=== PATIENT | female | born 1990 | race Caucasian/White ===

== ENCOUNTER 2024-10-22 16:43 | Emergency (ER) | payer OTHER ==
[~2024-10-22] VITALS: Ht 160 cm; Wt 73.0 kg
[2024-10-22 16:46] VITALS: O2SAT 99
[2024-10-22 16:56] VITALS: BP 121/80; PULSE 88; RESP 14; TEMP 36.8; O2SAT 96
[2024-10-22 17:54] LABS: BASOPHILS % 0.9 % (0.0-2.0); DIFFERENTIAL COMMENT 0; HEMATOCRIT. 26.4 % (36.0-48.0); HEMOGLOBIN. 8.2 g/dL (12.0-16.0); LYMPHOCYTES % 21.8 % (20.0-50.0); MEAN CORPUSCULAR HEMOGLOBIN 22.4 pg (28.0-32.0); MEAN CORPUSCULAR HGB CONC 31.3 g/dL (31.0-37.0); MEAN CORPUSCULAR VOLUME 71.5 fL (81.0-99.0); MEAN PLATELET VOLUME 8.5 fl (7.4-10.4); MONOCYTES % 8.7 % (2.0-8.0); NEUTROPHILS % 65.6 % (40.0-76.0); PLATELET 276 x1000/uL (130-400); RED BLOOD CELL COUNT 3.68 mill/uL (4.2-5.4); RED CELL DISTRIBUTION WIDTH 19.1 % (11.6-14.6)
[2024-10-22 18:32] LABS: HCG SCREEN NEGATIVE
[2024-10-22 18:36] LABS: CLARITY URINE CLEAR (CLEAR); COLOR URINE YELLOW (YELLOW); GLUCOSE URINE NEGATIVE (NEGATIVE); KETONES URINE NEGATIVE (NEGATIVE); LEUKOCYTE ESTERASE URINE 3+ (NEGATIVE); NITRITE URINE NEGATIVE (NEGATIVE); OCCULT BLOOD URINE NEGATIVE (NEGATIVE); PROTEIN URINE NEGATIVE (NEGATIVE); SPECIFIC GRAVITY URINE 1.008 (1.005-1.030); UROBILINOGEN URINE 0.2 E.U./dL (0.2-1.0)
[2024-10-22 19:25] LABS: BACTERIA URINE 2+; RBC URINE NONE SEEN /hpf (0-2); SQUAMOUS EPITHELIAL CELL URINE FEW /lpf (RARE/1+)
[2024-10-22] MEDS ORDERED: NITR-87 MT (20:24)
== END 2024-10-22 20:51 | disposition home or self-care (01) ==
LOC: ER 16:43
DX: N39.0 Urinary tract infection, site not specified (principal); N83.209 Unspecified ovarian cyst, unspecified side; J45.909 Unspecified asthma, uncomplicated; Z98.890 Other specified postprocedural states; Z88.7 Allergy status to serum and vaccine
CPT/HCPCS: 36415; 76830; 76856; 81003; 81025; 84703; 85025; 86850; 86900; 99284

== ENCOUNTER 2024-10-25 08:22 | Emergency (ER) | payer OTHER ==
[~2024-10-25] VITALS: Ht 160 cm; Wt 68.0 kg
[~2024-10-25 08:22] MED LIST: NITR-87 MT
[2024-10-25 08:26] VITALS: TEMP 36.8; O2SAT 99
[2024-10-25] MEDS ORDERED: P20 PO (10:21)
[2024-10-25] MEDS: PREDNISONE 20MG TABLET PO ONE (10:28)
[2024-10-25 10:40] VITALS: BP 147/90; PULSE 76; RESP 16; O2SAT 99
== END 2024-10-25 10:44 | disposition home or self-care (01) ==
LOC: ER 08:22
DX: R06.02 Shortness of breath (principal); J45.909 Unspecified asthma, uncomplicated; Z88.7 Allergy status to serum and vaccine
CPT/HCPCS: 99283; J7512

== ENCOUNTER 2025-01-12 15:20 | Emergency (ER) | payer OTHER ==
[~2025-01-12] VITALS: Ht 160 cm; Wt 74.0 kg
[~2025-01-12 15:20] MED LIST changes: +P20 PO
[2025-01-12 15:29] VITALS: BP 129/92; TEMP 36.7; O2SAT 100
[2025-01-12 15:32] VITALS: PULSE 85; RESP 18; O2SAT 100
[2025-01-12] MEDS ORDERED: CIPHCO EACH EAR (18:47)
[2025-01-12] MEDS ORDERED: ACET-2708 MT (18:47)
== END 2025-01-13 00:49 | disposition home or self-care (01) ==
LOC: ER 15:20
DX: H60.502 Unspecified acute noninfective otitis externa, left ear (principal); J45.909 Unspecified asthma, uncomplicated; Z79.52 Long term (current) use of systemic steroids; Z88.7 Allergy status to serum and vaccine
CPT/HCPCS: 99283